=== PATIENT | male | born 1990 ===

== ENCOUNTER 2016-10-16 19:26 | Emergency (ER) | payer MEDICAID, OTHER ==
--- NOTE | 2016-10-16 19:30 | UC ---
Back Pain HPI - HPI Summary HPI Summary: 26 year old male presents with complains of back pain with no trauma. - History of Current Complaint Stated Complaint: BACK PAIN Time Seen by Provider: 10/16/16 19:27 - Allergies/Home Medications Allergies/Adverse Reactions: Allergies Allergy/AdvReac Type Severity Reaction Status Date / Time Cefaclor [From Ceclor] Allergy Unknown Unknown Verified 10/16/16 19:33 Reaction Details Home Medications: Home Medications Acetaminophen TAB* [Tylenol TAB*] 650 mg PO Q4H PRN 10/16/16 [History Confirmed 10/16/16] Review of Systems Constitutional: Negative Skin: Negative Eyes: Negative ENT: Negative Respiratory: Negative Cardiovascular: Negative Gastrointestinal: Negative Genitourinary: Negative Motor: Negative Neurovascular: Negative Musculoskeletal: Arthralgia - lower back spasm, Myalgia Neurological: Negative Psychological: Negative All Other Systems Reviewed And Are Negative: Yes Physical Exam Triage Information Reviewed: Yes Eye Exam: Normal ENT Exam: Normal Dental Exam: Normal Neck exam: Normal Neck: Positive: 1 Respiratory Exam: Normal Cardiovascular Exam: Normal Abdominal Exam: Normal Musculoskeletal: Positive: Strength Limited @, ROM Limited @, Other: - lower paraspinal lumbar spasm Neurological Exam: Normal Psychological Exam: Normal Skin Exam: Normal Back Pain Course/Dx - Differential Dx/Diagnosis Provider Diagnoses: lumbar paraspinal back spasm Discharge - Discharge Plan Condition: Stable Disposition: HOME Prescriptions: Meloxicam [Mobic] 7.5 mg PO BID PC #30 tab Methocarbamol TAB* [Robaxin 500 MG TAB*] 500 mg PO TID PRN #30 tab PRN Reason: Spasms - Back Patient Education Materials: Low Back Strain (ED) Referrals: User,Conversion [Z.CONVERSION PROVIDER TYPE] -
[2016-10-16 19:41] VITALS: BP 124/78
== END 2016-10-16 20:03 | disposition home or self-care (01) ==
LOC: UCCORT 19:26
DX: M62.830 Muscle spasm of back (principal); M54.9 Dorsalgia, unspecified; Z88.1 Allergy status to other antibiotic agents
CPT/HCPCS: 99202; G0463